=== PATIENT | male | born 1965 | race Two or more races ===

== ENCOUNTER 2024-12-27 12:52 | Inpatient (IN) | payer MEDICAID ==
[~2024-12-27] VITALS: Ht 152.4 cm; Wt 81.6 kg
[2024-12-27 13:20] VITALS: O2SAT 96
[2024-12-27 15:22] LABS: BASOPHILS % 0.4 % (0.0-2.0); EOSINOPHILS % 1.2 % (0.0-5.0); HEMATOCRIT. 45.1 % (42.0-52.0); HEMOGLOBIN. 15.1 g/dL (14.0-18.0); LYMPHOCYTES % 28.0 % (20.0-50.0); MEAN PLATELET VOLUME 8.3 fl (7.4-10.4); MONOCYTES % 9.7 % (2.0-8.0); NEUTROPHILS % 60.7 % (40.0-76.0); PLATELET 212 x1000/uL (130-400); RED BLOOD CELL COUNT 4.83 mill/uL (4.7-6.1); RED CELL DISTRIBUTION WIDTH 13.9 % (11.6-14.6)
[2024-12-27 15:33] LABS: CREATININE 0.9 mg/dL (0.6-1.3); UREA NITROGEN BLOOD 14 mg/dL (9-23)
[2024-12-27 15:34] LABS: ETHANOL BLOOD < 10 mg/dL (<10)
[2024-12-27 15:35] LABS: ASPARTATE AMINOTRANSFERASE 16 IU/L (<34); BILIRUBIN DIRECT 0.2 mg/dL (<=3.0); TROPONIN I HIGH SENSITIVITY 11 ng/L (3.0-53)
[2024-12-27 15:36] LABS: BILIRUBIN TOTAL 0.7 mg/dL (0.1-1.0); PROTEIN TOTAL 8.0 g/dL (6.0-8.3)
[2024-12-27 15:41] LABS: INR 1.1
[2024-12-27] MEDS: HYDROCODONE/ACETAMINOPHEN 5/325MG TABLET PO ONE (15:53)
[2024-12-27] MEDS: NICOTINE 21MG PATCH TD SCH (18:02)
[2024-12-27 18:08] LABS: TROPONIN I HIGH SENSITIVITY 11 ng/L (3.0-53)
[2024-12-27] MEDS ORDERED: MAGNESIUM/ALUMINUM HYDROXIDE/SIMETHICONE 30ML UDC PO PRN (18:30)
[2024-12-27] MEDS ORDERED: DIPHENHYDRAMINE 50MG/ML VIAL IV PRN (18:30)
[2024-12-27] MEDS ORDERED: GUAIFENESIN 200MG/10ML SUGAR FREE UDC PO PRN (18:30)
[2024-12-27] MEDS ORDERED: NITROGLYCERIN 0.4MG TABLET SL SL PRN (18:30)
[2024-12-27] MEDS ORDERED: ACETAMINOPHEN 325MG TABLET PO PRN ×2 (18:30)
[2024-12-27] MEDS ORDERED: IPRATROPIUM/ALBUTEROL 0.5-3(2.5)MG/3ML NEB HHN PRN (18:30)
[2024-12-27] MEDS ORDERED: DOCUSATE SODIUM 100MG CAPSULE PO PRN (18:30)
[2024-12-27] MEDS ORDERED: ONDANSETRON HCL 4MG/2ML INJ IV PRN (18:30)
[2024-12-27] MEDS: PANTOPRAZOLE SODIUM 40 MG/VIAL IV SCH (19:09)
[2024-12-27 20:00] VITALS: BP 132/96; PULSE 75; RESP 20; TEMP 35.9; O2SAT 96
[2024-12-27 21:00] VITALS: BP 132/96; PULSE 67; RESP 18; TEMP 35.9176
[2024-12-27] MEDS ORDERED: ENOXAPARIN 40MG/0.4ML SYR SUBCUT SCH (21:00)
[2024-12-27] MEDS: ASPIRIN 81MG TABLET PO SCH (21:42)
[2024-12-27] MEDS: ATORVASTATIN CALCIUM 40MG TABLET PO SCH (21:42)
[2024-12-28] VITALS: BP 129/86; PULSE 77; RESP 21; TEMP 36.8; O2SAT 98
[2024-12-28 04:00] VITALS: BP 125/89; PULSE 79; RESP 20; TEMP 36.7; O2SAT 97
[2024-12-28 08:00] VITALS: BP 144/86; PULSE 80; RESP 18; TEMP 36.7; O2SAT 98
[2024-12-28] MEDS ORDERED: HYDROCHLOROTHIAZIDE 12.5MG CAPSULE PO SCH (09:00)
[2024-12-28] MEDS ORDERED: ENOXAPARIN 40MG/0.4ML SYR SUBCUT SCH (10:00)
[2024-12-28] MEDS: ENOXAPARIN 40MG/0.4ML SYR SUBCUT NR (12:31)
[2024-12-28] MEDS: DICLOFENAC SODIUM 1% GEL 50GM TOP SCH (12:32)
[2024-12-28 16:28] LABS: BASOPHILS % 0.6 % (0.0-2.0); EOSINOPHILS % 1.5 % (0.0-5.0); HEMATOCRIT. 43.4 % (42.0-52.0); HEMOGLOBIN. 14.5 g/dL (14.0-18.0); LYMPHOCYTES % 38.8 % (20.0-50.0); MEAN PLATELET VOLUME 8.9 fl (7.4-10.4); MONOCYTES % 9.4 % (2.0-8.0); NEUTROPHILS % 49.7 % (40.0-76.0); PLATELET 191 x1000/uL (130-400); RED BLOOD CELL COUNT 4.69 mill/uL (4.7-6.1); RED CELL DISTRIBUTION WIDTH 14.2 % (11.6-14.6)
[2024-12-28 16:43] LABS: LDL CHOLESTEROL 65.0 mg/dL (5-100); TRIGLYCERIDE 67.0 mg/dL (0-150)
[2024-12-28 16:45] LABS: CREATINE KINASE MB FRACTION 2.8 ng/mL (0.5-3.6); TROPONIN I HIGH SENSITIVITY 12.0 ng/L (3.0-53)
[2024-12-28 16:48] LABS: T4 FREE 1.35 ng/dL (0.89-1.76)
[2024-12-28] MEDS ORDERED: METOPROLOL TARTRATE 5MG/5ML VIAL IV PRN (19:00)
[2024-12-28 20:00] VITALS: BP 138/72; PULSE 89; RESP 20; TEMP 37; O2SAT 98
[2024-12-28] MEDS: ENOXAPARIN 80MG/0.8ML SYR SUBCUT SCH (21:00)
[2024-12-29] VITALS: BP 124/89; PULSE 91; RESP 20; TEMP 37; O2SAT 98
[2024-12-29 04:00] VITALS: BP 132/86; RESP 18; TEMP 36.4; O2SAT 98
[2024-12-29 08:00] VITALS: BP 120/81; PULSE 71; RESP 16; TEMP 36.3; O2SAT 96
[2024-12-29 12:00] VITALS: BP 128/87; PULSE 77; RESP 14; TEMP 36.2; O2SAT 95
[2024-12-29 20:00] VITALS: BP 139/86; PULSE 77; RESP 18; TEMP 36.6; O2SAT 96
[2024-12-30] VITALS: BP 128/88; PULSE 79; RESP 19; TEMP 36.6; O2SAT 99
[2024-12-30 04:00] VITALS: BP 141/84; PULSE 73; RESP 18; TEMP 36.6; O2SAT 99
[2024-12-30 08:00] VITALS: BP 132/88; PULSE 73; RESP 18; TEMP 36.4; O2SAT 97
[2024-12-30 16:10] VITALS: BP 146/100; PULSE 72; RESP 20; TEMP 36.4; O2SAT 98
[2024-12-30] MEDS: CLONIDINE 0.1MG TABLET PO PRN (16:42)
[2024-12-30 20:00] VITALS: BP 140/91; PULSE 80; RESP 21; TEMP 36.8; O2SAT 97
[2024-12-31] VITALS: BP 119/81; PULSE 66; RESP 21; TEMP 36.4; O2SAT 96
[2024-12-31 08:00] VITALS: BP 128/87; PULSE 73; RESP 20; TEMP 36.6; O2SAT 99
[2024-12-31] MEDS: NITROGLYCERIN SPRAY/4.9GM CAN TL ONE (09:05)
[2024-12-31] MEDS ORDERED: IOHEXOL-350 100 ML BOTTLE ONE (10:01)
[2024-12-31 12:00] VITALS: BP 131/80; PULSE 75; RESP 20; TEMP 36.5; O2SAT 98
[2024-12-31 16:00] VITALS: BP 172/71; PULSE 73; RESP 20; TEMP 36.6; O2SAT 98
[2024-12-31] MEDS: NICOTINE 7MG PATCH TD SCH (17:40)
[2024-12-31 20:00] VITALS: BP 155/92; PULSE 73; RESP 22; TEMP 36.8; O2SAT 98
[2025-01-01] VITALS: BP 142/101; PULSE 70; RESP 20; TEMP 36.6; O2SAT 96
[2025-01-01 04:00] VITALS: BP 120/86; PULSE 68; RESP 20; TEMP 36; O2SAT 98
[2025-01-01 08:00] VITALS: BP 145/99; PULSE 66; RESP 18; TEMP 36.2; O2SAT 98
[2025-01-01 12:00] VITALS: BP 127/80; PULSE 70; RESP 14; TEMP 36.1; O2SAT 98
[2025-01-01 16:00] VITALS: BP 137/67; PULSE 68; RESP 15; TEMP 36.8; O2SAT 98
[2025-01-01 20:00] VITALS: BP 143/91; PULSE 72; RESP 18; TEMP 36.5; O2SAT 99
[2025-01-02] VITALS: BP 124/78; PULSE 68; RESP 18; TEMP 36.6; O2SAT 99
[2025-01-02 04:00] VITALS: BP 119/79; PULSE 73; RESP 18; TEMP 37.2; O2SAT 99
[2025-01-02 08:00] VITALS: BP 121/73; PULSE 67; RESP 20; TEMP 36.6; O2SAT 95
[2025-01-02 12:00] VITALS: BP 121/70; PULSE 70; RESP 20; TEMP 36.7; O2SAT 96
[2025-01-02 16:00] VITALS: BP 128/82; PULSE 65; RESP 20; TEMP 36.4; O2SAT 93
[2025-01-02 20:00] VITALS: BP 127/84; PULSE 72; RESP 18; TEMP 36.4; O2SAT 99
[2025-01-03] VITALS: BP 133/85; PULSE 66; RESP 18; TEMP 36.4; O2SAT 99
[2025-01-03 04:00] VITALS: BP 121/85; PULSE 72; RESP 18; TEMP 36.3; O2SAT 99
[2025-01-03 08:06] VITALS: BP 124/78; PULSE 64; RESP 18; TEMP 36.2; O2SAT 99
[2025-01-03 12:10] VITALS: BP 116/78; PULSE 72; RESP 18; TEMP 36.4; O2SAT 100
[2025-01-03 16:00] VITALS: BP 127/82; PULSE 62; RESP 18; TEMP 36.1; O2SAT 96
[2025-01-03 20:00] VITALS: BP 125/73; PULSE 70; RESP 20; TEMP 36.5; O2SAT 98
[2025-01-03] MEDS: ATORVASTATIN CALCIUM 20MG TABLET PO SCH (21:00)
[2025-01-04] VITALS: BP 138/83; PULSE 67; RESP 19; TEMP 36.4; O2SAT 95
[2025-01-04 04:00] VITALS: BP 115/73; PULSE 67; RESP 20; TEMP 36.6; O2SAT 97
[2025-01-04 08:00] VITALS: BP 127/79; PULSE 78; RESP 20; TEMP 36.7; O2SAT 93
[2025-01-04 12:00] VITALS: BP 115/86; PULSE 72; RESP 18; TEMP 36.6; O2SAT 95
[2025-01-04 16:00] VITALS: BP 116/85; PULSE 76; RESP 18; TEMP 36.4; O2SAT 94
[2025-01-04 20:00] VITALS: BP 127/85; PULSE 72; RESP 18; TEMP 36.5; O2SAT 96
[2025-01-05] VITALS: BP 123/88; PULSE 77; RESP 18; TEMP 36.3; O2SAT 98
[2025-01-05 04:00] VITALS: BP 141/88; PULSE 70; RESP 18; TEMP 36.1; O2SAT 96
[2025-01-05 08:00] VITALS: BP 113/79; PULSE 61; RESP 17; TEMP 36.6; O2SAT 97
[2025-01-05 12:00] VITALS: BP 118/87; PULSE 66; RESP 15; TEMP 36.6; O2SAT 96
[2025-01-05 16:00] VITALS: BP 134/90; PULSE 65; RESP 18; TEMP 36.2; O2SAT 95
[2025-01-05 20:00] VITALS: BP 124/79; PULSE 76; RESP 20; TEMP 36.8; O2SAT 95
[2025-01-06] VITALS: BP 120/90; PULSE 69; RESP 19; TEMP 36.4; O2SAT 94
[2025-01-06 04:00] VITALS: BP 108/79; PULSE 72; RESP 20; TEMP 36.4; O2SAT 95
[2025-01-06 08:00] VITALS: BP 115/82; PULSE 70; RESP 17; TEMP 36.4; O2SAT 100
[2025-01-06 12:00] VITALS: BP 122/78; PULSE 67; RESP 18; TEMP 36.4; O2SAT 97
[2025-01-06 16:00] VITALS: BP 118/73; PULSE 65; RESP 18; TEMP 36.5; O2SAT 100
[2025-01-06 20:00] VITALS: BP 124/82; PULSE 82; RESP 18; TEMP 36.2; O2SAT 100
[2025-01-07] VITALS (11 sets, daily range): BP systolic 110–144; BP diastolic 76–113; PULSE 64–87; RESP 13–22; TEMP 36.2–36.7; O2SAT 94–100
[2025-01-07] MEDS ORDERED: HEPARIN 1000 UNITS/ML 10ML ONE ×2 (13:47→15:03)
[2025-01-07] MEDS ORDERED: IODIXANOL 320MG/ML 100 ML BOTTLE IV ONE ×2 (13:47→14:50)
[2025-01-07] MEDS ORDERED: LIDOCAINE HCL 1% 20ML VIAL ONE (13:47)
[2025-01-07] MEDS ORDERED: FENTANYL CITRATE/PF 50MCG/ML 2ML VIAL ONE (14:08)
[2025-01-07] MEDS ORDERED: MIDAZOLAM HCL 2 MG/2 ML VIAL ONE (14:08)
[2025-01-07] MEDS ORDERED: EPINEPHRINE 0.1MG/ML (1:10,000) 10ML SYR ONE (14:18)
[2025-01-07] MEDS ORDERED: ATROPINE SULFATE 1MG/10ML SYR ONE (14:19)
[2025-01-07] MEDS ORDERED: VERAPAMIL HCL 2.5 MG/1 ML 2ML VIAL IV ONE (14:28)
[2025-01-07] MEDS ORDERED: ATROPINE SULFATE 1MG/10ML SYR IV PRN (15:45)
[2025-01-07] MEDS: SODIUM CHLORIDE 0.45% 1,000 ML IV ONE (17:37)
[2025-01-08] VITALS (7 sets, daily range): BP systolic 102–141; BP diastolic 79–96; PULSE 59–77; RESP 9–18; TEMP 36.4–37; O2SAT 96–100
[2025-01-08 08:58] LABS: BASOPHILS % 0.5 % (0.0-2.0); EOSINOPHILS % 1.5 % (0.0-5.0); HEMATOCRIT. 39.4 % (42.0-52.0); HEMOGLOBIN. 13.2 g/dL (14.0-18.0); LYMPHOCYTES % 23.9 % (20.0-50.0); MEAN PLATELET VOLUME 9.5 fl (7.4-10.4); MONOCYTES % 9.5 % (2.0-8.0); NEUTROPHILS % 64.6 % (40.0-76.0); PLATELET 172 x1000/uL (130-400); RED BLOOD CELL COUNT 4.35 mill/uL (4.7-6.1); RED CELL DISTRIBUTION WIDTH 13.8 % (11.6-14.6)
[2025-01-08 09:11] LABS: CREATININE 0.9 mg/dL (0.6-1.3); UREA NITROGEN BLOOD 11 mg/dL (9-23)
[2025-01-08] MEDS: METOPROLOL SUCCINATE 50MG ER TABLET PO SCH (14:10)
[2025-01-09] VITALS: BP 119/88; PULSE 63; RESP 14; TEMP 36.6; O2SAT 95
[2025-01-09 04:00] VITALS: BP 103/84; PULSE 65; RESP 14; TEMP 36.9; O2SAT 95
[2025-01-09 07:01] LABS: CREATININE 0.9 mg/dL (0.6-1.3); UREA NITROGEN BLOOD 10 mg/dL (9-23)
[2025-01-09 07:04] LABS: BASOPHILS % 0.6 % (0.0-2.0); EOSINOPHILS % 1.9 % (0.0-5.0); HEMATOCRIT. 39.7 % (42.0-52.0); HEMOGLOBIN. 13.4 g/dL (14.0-18.0); LYMPHOCYTES % 34.3 % (20.0-50.0); MEAN PLATELET VOLUME 9.4 fl (7.4-10.4); MONOCYTES % 9.3 % (2.0-8.0); NEUTROPHILS % 53.9 % (40.0-76.0); PLATELET 183 x1000/uL (130-400); RED BLOOD CELL COUNT 4.39 mill/uL (4.7-6.1); RED CELL DISTRIBUTION WIDTH 14.1 % (11.6-14.6)
[2025-01-09 08:00] VITALS: BP 114/86; PULSE 74; RESP 17; TEMP 36.8; O2SAT 95
[2025-01-09] MEDS: CLOPIDOGREL 75MG TABLET PO SCH (09:39)
[2025-01-09] MEDS: ASPIRIN 81MG TABLET PO SCH (09:39)
[2025-01-09] MEDS: ENOXAPARIN 40MG/0.4ML SYR SUBCUT SCH (09:40)
[2025-01-09 12:00] VITALS: BP 120/77; PULSE 69; RESP 17; TEMP 36.4; O2SAT 95
[2025-01-09 16:00] VITALS: BP 99/81; PULSE 73; RESP 16; TEMP 36.6; O2SAT 95
[2025-01-09 20:00] VITALS: BP 112/81; PULSE 71; RESP 13; TEMP 36.4; O2SAT 96
[2025-01-10] VITALS: BP 117/87; PULSE 66; RESP 15; TEMP 36.9; O2SAT 96
[2025-01-10 04:00] VITALS: BP 109/83; PULSE 67; RESP 16; TEMP 37.1
[2025-01-10 07:18] LABS: CREATININE 0.9 mg/dL (0.6-1.3); UREA NITROGEN BLOOD 10 mg/dL (9-23)
[2025-01-10 07:29] LABS: BASOPHILS % 0.5 % (0.0-2.0); EOSINOPHILS % 1.9 % (0.0-5.0); HEMATOCRIT. 38.2 % (42.0-52.0); HEMOGLOBIN. 12.9 g/dL (14.0-18.0); LYMPHOCYTES % 31.2 % (20.0-50.0); MEAN PLATELET VOLUME 9.1 fl (7.4-10.4); MONOCYTES % 11.3 % (2.0-8.0); NEUTROPHILS % 55.1 % (40.0-76.0); PLATELET 177 x1000/uL (130-400); RED BLOOD CELL COUNT 4.23 mill/uL (4.7-6.1); RED CELL DISTRIBUTION WIDTH 14.0 % (11.6-14.6)
[2025-01-10 07:48] LABS: INR 1.1
[2025-01-10 08:00] VITALS: BP 111/59; PULSE 64; RESP 19; TEMP 36.6; O2SAT 95
[2025-01-10] MEDS ORDERED: HEPARIN 1000 UNITS/ML 10ML ONE ×2 (09:46→11:46)
[2025-01-10] MEDS ORDERED: LIDOCAINE HCL 1% 20ML VIAL ONE (09:46)
[2025-01-10] MEDS ORDERED: VERAPAMIL HCL 2.5 MG/1 ML 2ML VIAL IV ONE (09:46)
[2025-01-10] MEDS ORDERED: IODIXANOL 320 MG/ML 150ML BOTTLE IV ONE (09:46)
[2025-01-10] MEDS ORDERED: FENTANYL CITRATE/PF 50MCG/ML 2ML VIAL ONE (10:46)
[2025-01-10] MEDS ORDERED: MIDAZOLAM HCL 2 MG/2 ML VIAL ONE ×2 (10:46→11:36)
[2025-01-10] MEDS ORDERED: IODIXANOL 320MG/ML 100 ML BOTTLE IV ONE (12:26)
[2025-01-10] MEDS ORDERED: ASPIRIN 81MG TABLET ONE (12:33)
[2025-01-10] MEDS ORDERED: CLOPIDOGREL 75MG TABLET ONE (12:34)
[2025-01-10 12:55] VITALS: BP 121/83; PULSE 66; RESP 12; TEMP 36.5; O2SAT 96
[2025-01-10] MEDS ORDERED: ATROPINE SULFATE 1MG/10ML SYR IV PRN (13:00)
[2025-01-10 16:00] VITALS: BP 134/95; PULSE 90; RESP 17; TEMP 36.7; O2SAT 97
[2025-01-10] MEDS: SODIUM CHLORIDE 0.45% 1,000 ML IV SCH (16:21)
[2025-01-10 20:00] VITALS: BP 128/107; PULSE 91; RESP 20; TEMP 36.4; O2SAT 95
[2025-01-11] VITALS: BP 148/103; PULSE 85; RESP 20; TEMP 36.4; O2SAT 96
[2025-01-11] MEDS: METOPROLOL TARTRATE 25MG TABLET PO NR (00:15)
[2025-01-11 04:00] VITALS: BP 111/74; PULSE 69; RESP 18; O2SAT 98
[2025-01-11 06:42] LABS: BASOPHILS % 0.3 % (0.0-2.0); EOSINOPHILS % 1.9 % (0.0-5.0); HEMATOCRIT. 37.7 % (42.0-52.0); HEMOGLOBIN. 12.8 g/dL (14.0-18.0); LYMPHOCYTES % 19.3 % (20.0-50.0); MEAN PLATELET VOLUME 8.9 fl (7.4-10.4); MONOCYTES % 12.0 % (2.0-8.0); NEUTROPHILS % 66.5 % (40.0-76.0); PLATELET 182 x1000/uL (130-400); RED BLOOD CELL COUNT 4.18 mill/uL (4.7-6.1); RED CELL DISTRIBUTION WIDTH 14.2 % (11.6-14.6)
[2025-01-11 07:05] LABS: CREATININE 0.8 mg/dL (0.6-1.3)
[2025-01-11 07:06] LABS: UREA NITROGEN BLOOD 9 mg/dL (9-23)
[2025-01-11 08:00] VITALS: BP 122/88; PULSE 66; RESP 13; TEMP 36.6; O2SAT 99
[2025-01-11] MEDS: METOPROLOL SUCCINATE 25MG ER TABLET PO SCH (08:37)
[2025-01-11 12:00] VITALS: BP 119/84; PULSE 86; RESP 21; TEMP 36.9; O2SAT 98
[2025-01-11] MEDS: NICOTINE 14MG PATCH TD SCH (13:46)
[2025-01-11 16:00] VITALS: BP 106/78; PULSE 81; RESP 19; TEMP 36.8; O2SAT 97
[2025-01-11 20:00] VITALS: BP 117/95; PULSE 75; RESP 18; TEMP 36.8; O2SAT 97
[2025-01-12] VITALS: BP 121/84; PULSE 74; RESP 15; TEMP 36.6; O2SAT 93
[2025-01-12 04:00] VITALS: BP 123/86; PULSE 69; RESP 14; TEMP 36.3; O2SAT 94
[2025-01-12 08:00] VITALS: BP 127/96; PULSE 75; RESP 14; TEMP 36.9; O2SAT 93
[2025-01-12 12:00] VITALS: BP 109/84; PULSE 87; RESP 22; TEMP 36.6; O2SAT 94
[2025-01-12 16:00] VITALS: BP 120/97; PULSE 69; RESP 18; TEMP 36.6; O2SAT 97
[2025-01-12 20:00] VITALS: BP 110/87; PULSE 74; RESP 12; TEMP 36.8; O2SAT 93
[2025-01-12] MEDS: ATORVASTATIN CALCIUM 40MG TABLET PO SCH (21:07)
[2025-01-13] VITALS: BP 123/94; PULSE 75; RESP 15; TEMP 36.7; O2SAT 97
[2025-01-13 04:00] VITALS: BP 112/95; PULSE 67; RESP 10; TEMP 36.6; O2SAT 97
[2025-01-13 08:00] VITALS: BP 120/93; PULSE 80; RESP 14; TEMP 36.6; O2SAT 95
[2025-01-13 12:00] VITALS: BP 106/84; PULSE 84; RESP 15; TEMP 36.6; O2SAT 94
[2025-01-13 16:00] VITALS: BP 120/95; PULSE 72; RESP 12; TEMP 36.8; O2SAT 99
[2025-01-13 20:00] VITALS: BP 124/99; PULSE 84; RESP 18; TEMP 36.7; O2SAT 95
[2025-01-14] VITALS: BP 138/103; PULSE 87; RESP 20; TEMP 36.8; O2SAT 99
[2025-01-14 01:51] VITALS: BP 122/98; PULSE 79; RESP 16; O2SAT 97
[2025-01-14 04:00] VITALS: BP 142/93; PULSE 79; RESP 20; TEMP 36.7; O2SAT 98
[2025-01-14 05:15] VITALS: BP 132/93; PULSE 73; RESP 19; TEMP 36.5; O2SAT 100
[2025-01-14 16:00] VITALS: BP 124/84; PULSE 84; RESP 20; TEMP 36.4; O2SAT 99
[2025-01-14 20:00] VITALS: BP 119/54; PULSE 88; RESP 19; TEMP 36.6; O2SAT 96
[2025-01-15] VITALS: BP 121/86; PULSE 92; RESP 19; TEMP 36.7; O2SAT 96
[2025-01-15 04:00] VITALS: BP 117/85; PULSE 80; RESP 17; TEMP 36.6; O2SAT 96
[2025-01-15 08:00] VITALS: BP 118/76; PULSE 84; RESP 17; TEMP 36.2; O2SAT 96
[2025-01-15 12:00] VITALS: BP 103/79; PULSE 92; RESP 18; TEMP 36.4; O2SAT 97
[2025-01-15 16:00] VITALS: BP 124/83; PULSE 87; RESP 18; TEMP 36.5; O2SAT 99
[2025-01-15 20:00] VITALS: BP 106/75; PULSE 78; RESP 18; TEMP 36.6; O2SAT 95
[2025-01-16] VITALS: BP 119/75; PULSE 74; RESP 18; TEMP 37.1; O2SAT 95
[2025-01-16 04:00] VITALS: BP 100/71; PULSE 72; RESP 19; TEMP 36.6; O2SAT 96
[2025-01-16 08:00] VITALS: BP 101/69; PULSE 65; RESP 16; TEMP 36.6; O2SAT 99
[2025-01-16 12:00] VITALS: BP 122/80; PULSE 78; RESP 16; TEMP 36.7; O2SAT 96
[2025-01-16 16:00] VITALS: BP 149/94; PULSE 79; RESP 18; TEMP 36.6; O2SAT 100
[2025-01-17] VITALS: BP 126/86; PULSE 85; RESP 18; TEMP 36.4; O2SAT 100
[2025-01-17 08:00] VITALS: BP 118/76; PULSE 77; RESP 20; TEMP 36.3; O2SAT 95
[2025-01-17 12:00] VITALS: BP_SYST 105; BP_SYST 133; BP_DIAS 73; BP_DIAS 87; PULSE 80; PULSE 92; RESP 16; RESP 18; TEMP 36.1; TEMP 36.6; O2SAT 96; O2SAT 98
[2025-01-17 16:00] VITALS: BP 114/68; PULSE 75; RESP 18; TEMP 36.4; O2SAT 99
[2025-01-17 20:00] VITALS: BP 102/74; PULSE 72; RESP 18; TEMP 36.3; O2SAT 95
[2025-01-18] VITALS: BP 118/78; PULSE 66; RESP 20; TEMP 36.5; O2SAT 95
[2025-01-18 04:00] VITALS: BP 124/72; PULSE 64; RESP 20; TEMP 36.8; O2SAT 96
[2025-01-18 08:00] VITALS: BP 121/78; PULSE 60; RESP 17; TEMP 36.7; O2SAT 97
[2025-01-18 16:00] VITALS: BP 110/68; PULSE 78; RESP 18; TEMP 37.2; O2SAT 97
[2025-01-18 20:00] VITALS: BP 116/71; PULSE 71; RESP 18; TEMP 36.6; O2SAT 100
[2025-01-19] VITALS: BP 116/74; PULSE 71; RESP 18; TEMP 36.6; O2SAT 97
[2025-01-19 04:00] VITALS: BP 108/72; PULSE 67; RESP 18; TEMP 36.2; O2SAT 100
[2025-01-19 08:00] VITALS: BP 123/78; PULSE 65; RESP 17; TEMP 36.8; O2SAT 97
[2025-01-19 12:00] VITALS: BP 106/67; PULSE 70; RESP 18; TEMP 37.3; O2SAT 98
[2025-01-19 16:00] VITALS: BP 99/66; PULSE 68; RESP 18; TEMP 36.8; O2SAT 98
[2025-01-19 20:00] VITALS: BP 113/77; PULSE 68; RESP 18; TEMP 36.7; O2SAT 95
[2025-01-20] VITALS: BP 112/81; PULSE 62; RESP 18; TEMP 36.5; O2SAT 100
[2025-01-20 04:00] VITALS: BP 113/77; PULSE 66; RESP 18; TEMP 36.4; O2SAT 100
[2025-01-20 08:00] VITALS: BP 108/73; PULSE 58; RESP 16; TEMP 36.1; O2SAT 96
[2025-01-20 12:00] VITALS: BP 96/54; PULSE 66; RESP 18; TEMP 36.1; O2SAT 100
[2025-01-20 20:00] VITALS: BP 114/80; PULSE 86; RESP 17; TEMP 36.6; O2SAT 96
[2025-01-21] VITALS: BP 120/85; PULSE 74; RESP 18; TEMP 36.6; O2SAT 96
[2025-01-21 04:00] VITALS: BP 109/81; PULSE 72; RESP 19; TEMP 36.6; O2SAT 97
[2025-01-21 08:00] VITALS: BP 128/77; PULSE 78; RESP 19; TEMP 36.4; O2SAT 95
[2025-01-21 12:00] VITALS: BP 99/63; PULSE 63; RESP 19; TEMP 36.1; O2SAT 95
[2025-01-21 16:00] VITALS: BP 109/61; PULSE 86; RESP 18; TEMP 36.4; O2SAT 96
[2025-01-21 20:00] VITALS: BP 103/62; PULSE 75; RESP 18; TEMP 36.8; O2SAT 96
[2025-01-22] VITALS: BP 103/72; PULSE 73; RESP 18; TEMP 36.7; O2SAT 95
[2025-01-22 04:00] VITALS: BP 113/76; PULSE 71; RESP 18; TEMP 37.1; O2SAT 95
[2025-01-22 08:00] VITALS: BP 99/71; PULSE 69; RESP 20; TEMP 36.7; O2SAT 95
[2025-01-22 12:00] VITALS: BP 92/65; PULSE 81; RESP 20; TEMP 36.2; O2SAT 95
[2025-01-22 16:00] VITALS: BP 121/83; PULSE 82; RESP 20; TEMP 36.7; O2SAT 99
[2025-01-22 20:00] VITALS: BP 113/79; PULSE 97; RESP 17; TEMP 36.8; O2SAT 94
[2025-01-23] VITALS: BP 119/74; PULSE 83; RESP 17; TEMP 36.6; O2SAT 95
[2025-01-23 04:00] VITALS: BP 117/72; PULSE 78; RESP 19; TEMP 36.7; O2SAT 96
[2025-01-23 08:00] VITALS: BP 116/75; PULSE 92; RESP 17; TEMP 37; O2SAT 96
[2025-01-23 12:00] VITALS: BP 105/6; PULSE 75; RESP 17; TEMP 37; O2SAT 96
[2025-01-23 16:00] VITALS: BP 111/76; PULSE 64; RESP 18; TEMP 36.6; O2SAT 95
[2025-01-23 20:00] VITALS: BP 111/72; PULSE 69; RESP 18; TEMP 36.4; O2SAT 95
[2025-01-24] VITALS: BP 121/82; PULSE 59; RESP 18; TEMP 36.6; O2SAT 95
[2025-01-24 04:00] VITALS: BP 122/81; PULSE 63; RESP 18; TEMP 36.5; O2SAT 95
[2025-01-24 08:00] VITALS: BP 126/84; PULSE 62; RESP 19; TEMP 36.4; O2SAT 96
[2025-01-24 12:00] VITALS: BP 122/69; PULSE 76; RESP 19; TEMP 36.4; O2SAT 96
[2025-01-24 16:00] VITALS: BP 109/74; PULSE 76; RESP 18; TEMP 36.5; O2SAT 96
[2025-01-24 20:00] VITALS: BP 115/82; PULSE 74; RESP 18; TEMP 37; O2SAT 94
[2025-01-25] VITALS: BP 119/84; PULSE 63; RESP 18; TEMP 36.6; O2SAT 100
[2025-01-25 04:00] VITALS: BP 111/82; PULSE 73; RESP 20; TEMP 37; O2SAT 98
[2025-01-25 08:00] VITALS: BP 119/66; PULSE 61; RESP 18; TEMP 36.1; O2SAT 97
[2025-01-25 12:00] VITALS: BP 102/59; PULSE 66; RESP 19; TEMP 36.1; O2SAT 97
[2025-01-25] MEDS: ENOXAPARIN 40MG/0.4ML SYR SUBCUT SCH (14:00)
[2025-01-25 16:00] VITALS: BP 119/73; PULSE 69; RESP 18; TEMP 36.2; O2SAT 97
[2025-01-25 20:00] VITALS: BP 123/75; PULSE 70; RESP 18; TEMP 36.4; O2SAT 96
[2025-01-26 04:00] VITALS: BP 117/75; PULSE 71; RESP 18; TEMP 36.4; O2SAT 95
[2025-01-26 08:00] VITALS: BP 113/76; PULSE 64; RESP 19; TEMP 36.5; O2SAT 97
[2025-01-26 12:00] VITALS: BP 108/73; PULSE 73; RESP 18; TEMP 36.4; O2SAT 97
[2025-01-26 16:00] VITALS: BP 115/73; PULSE 66; RESP 19; TEMP 36.4; O2SAT 98
[2025-01-26 20:00] VITALS: BP 117/60; PULSE 70; RESP 18; TEMP 36.4; O2SAT 95
[2025-01-27 04:00] VITALS: BP 115/72; PULSE 64; RESP 18; TEMP 36.3; O2SAT 95
[2025-01-27 08:00] VITALS: BP 111/76; PULSE 69; RESP 19; TEMP 36.5; O2SAT 99
[2025-01-27 12:00] VITALS: BP 115/69; PULSE 74; RESP 14; TEMP 36.4; O2SAT 100
[2025-01-27 16:00] VITALS: BP 111/70; PULSE 64; RESP 18; TEMP 36.6; O2SAT 96
[2025-01-27 20:00] VITALS: BP 111/66; PULSE 75; RESP 18; TEMP 36.4; O2SAT 94
[2025-01-28] VITALS: BP 128/84; PULSE 77; RESP 18; TEMP 36.3; O2SAT 95
[2025-01-28 04:00] VITALS: BP 121/59; PULSE 65; RESP 18; TEMP 36.3; O2SAT 95
[2025-01-28 08:00] VITALS: BP 115/83; PULSE 60; RESP 18; TEMP 36.6; O2SAT 96
[2025-01-28 12:00] VITALS: BP 103/69; PULSE 80; RESP 17; TEMP 36.5; O2SAT 97
[2025-01-28 20:00] VITALS: BP 108/72; PULSE 74; RESP 17; TEMP 36.5; O2SAT 99
[2025-01-29] VITALS: BP 107/68; PULSE 76; RESP 17; TEMP 36.5; O2SAT 99
[2025-01-29 04:00] VITALS: BP 111/65; PULSE 70; RESP 17; TEMP 36.6; O2SAT 98
[2025-01-29 08:00] VITALS: BP 131/83; PULSE 61; RESP 16; TEMP 36.6; O2SAT 98
[2025-01-29 12:00] VITALS: BP_SYST 118; BP_SYST 120; BP_DIAS 70; BP_DIAS 75; PULSE 69; PULSE 81; RESP 16; RESP 18; TEMP 36.5; O2SAT 96
[2025-01-29 16:00] VITALS: BP 110/70; PULSE 71; RESP 16; TEMP 36.5; O2SAT 97
[2025-01-30] VITALS: BP 124/74; PULSE 73; RESP 20; TEMP 36.7; O2SAT 96
[2025-01-30 04:00] VITALS: BP 121/77; PULSE 68; RESP 20; TEMP 36.4; O2SAT 98
[2025-01-30 08:00] VITALS: BP 125/77; PULSE 65; RESP 18; TEMP 36.4; O2SAT 95
[2025-01-30 16:00] VITALS: BP 107/65; PULSE 62; RESP 17; TEMP 36.2; O2SAT 95
[2025-01-30 20:00] VITALS: BP 106/73; PULSE 69; RESP 18; TEMP 36.8; O2SAT 99
[2025-01-31] VITALS: BP 111/69; PULSE 68; RESP 19; TEMP 36.6; O2SAT 98
[2025-01-31 04:00] VITALS: BP 110/70; PULSE 70; RESP 18; TEMP 36.5; O2SAT 97
[2025-01-31 08:00] VITALS: BP 107/74; PULSE 70; RESP 17; TEMP 36.7; O2SAT 97
[2025-01-31 12:00] VITALS: BP 102/74; PULSE 87; RESP 18; TEMP 36.6; O2SAT 99
[2025-01-31 16:00] VITALS: BP 110/68; PULSE 78; RESP 20; TEMP 36.8; O2SAT 99
[2025-01-31 20:00] VITALS: BP 109/75; PULSE 72; RESP 17; TEMP 36.6; O2SAT 98
[2025-02-01] VITALS: BP 110/75; PULSE 75; RESP 18; TEMP 36.6; O2SAT 97
[2025-02-01 04:00] VITALS: BP 125/83; PULSE 77; RESP 17; TEMP 36.7; O2SAT 98
[2025-02-01 08:00] VITALS: BP 119/91; PULSE 70; RESP 17; TEMP 36.2; O2SAT 97
[2025-02-01 12:00] VITALS: PULSE 73; RESP 18; TEMP 36.4; O2SAT 98
[2025-02-01 16:00] VITALS: BP 124/84; PULSE 76; RESP 18; TEMP 36.4; O2SAT 98
[2025-02-01 20:00] VITALS: BP 121/77; PULSE 61; RESP 18; TEMP 36.6; O2SAT 95
[2025-02-02] VITALS: BP 116/74; PULSE 61; RESP 18; TEMP 36.4; O2SAT 98
[2025-02-02 04:00] VITALS: BP 115/82; PULSE 62; RESP 18; TEMP 36.3; O2SAT 98
[2025-02-02 08:00] VITALS: BP 133/87; PULSE 82; RESP 17; TEMP 36.4; O2SAT 100
[2025-02-02 12:00] VITALS: BP 123/69; PULSE 63; RESP 18; TEMP 36.3; O2SAT 97
[2025-02-02 16:00] VITALS: BP 115/73; PULSE 64; RESP 18; TEMP 36.3; O2SAT 97
[2025-02-02 20:00] VITALS: BP 126/90; PULSE 64; RESP 19; TEMP 36.4; O2SAT 97
[2025-02-03] VITALS: BP 120/71; PULSE 58; RESP 19; TEMP 36.4; O2SAT 99
[2025-02-03 04:00] VITALS: BP 126/84; PULSE 71; RESP 19; TEMP 36.3; O2SAT 98
[2025-02-03 08:00] VITALS: BP 117/81; PULSE 72; RESP 18; TEMP 36.5; O2SAT 98
[2025-02-03 12:00] VITALS: BP 110/80; PULSE 79; RESP 18; TEMP 36.4; O2SAT 98
[2025-02-03 16:00] VITALS: BP 111/84; PULSE 77; RESP 18; TEMP 36.4; O2SAT 96
[2025-02-03 20:00] VITALS: BP 114/75; PULSE 77; RESP 18; TEMP 36.4; O2SAT 97
[2025-02-04 04:00] VITALS: BP 126/80; PULSE 72; RESP 16; TEMP 36.7; O2SAT 100
[2025-02-04 08:00] VITALS: BP 118/83; PULSE 69; RESP 20; TEMP 35.6; O2SAT 99
[2025-02-04 12:00] VITALS: BP 124/81; PULSE 83; RESP 20; TEMP 36.4; O2SAT 98
[2025-02-04 16:00] VITALS: BP 114/63; PULSE 74; RESP 19; TEMP 36.6; O2SAT 97
[2025-02-04 20:00] VITALS: BP 118/77; PULSE 77; RESP 18; TEMP 36.1; O2SAT 98
[2025-02-05] VITALS: BP 109/69; PULSE 63; RESP 16; TEMP 36.6; O2SAT 95
[2025-02-05 04:00] VITALS: BP 113/82; PULSE 68; RESP 17; TEMP 36.7; O2SAT 99
[2025-02-05 08:00] VITALS: BP 118/78; PULSE 64; RESP 18; TEMP 36.7; O2SAT 97
[2025-02-05 12:00] VITALS: BP 106/73; PULSE 69; RESP 19; TEMP 36.6; O2SAT 97
[2025-02-05 16:00] VITALS: BP 120/76; PULSE 67; RESP 18; TEMP 36.5; O2SAT 97
[2025-02-06] VITALS: BP 115/78; PULSE 82; RESP 18; TEMP 36.5; O2SAT 96
[2025-02-06 04:00] VITALS: BP 126/77; PULSE 63; RESP 18; TEMP 36.6; O2SAT 100
[2025-02-06 08:00] VITALS: BP 134/83; PULSE 74; RESP 18; TEMP 36.5; O2SAT 98
[2025-02-06 12:00] VITALS: BP 126/69; PULSE 75; RESP 17; TEMP 36.7; O2SAT 98
[2025-02-06 16:00] VITALS: BP 136/88; PULSE 75; RESP 16; TEMP 36.5; O2SAT 96
[2025-02-06 20:00] VITALS: BP 113/75; PULSE 75; RESP 19; TEMP 36.9; O2SAT 96
[2025-02-07] VITALS (7 sets, daily range): BP systolic 111–127; BP diastolic 72–81; PULSE 65–79; RESP 17–19; TEMP 35.7–37.1; O2SAT 97–100
[2025-02-07] MEDS: CLOPIDOGREL 75MG TABLET PO SCH (13:15)
[2025-02-07] MEDS ORDERED: APIXABAN 5 MG TABLET PO SCH (21:00)
[2025-02-08 04:00] VITALS: BP 119/77; PULSE 68; RESP 19; TEMP 36.9; O2SAT 98
[2025-02-08 08:36] VITALS: PULSE 73
[2025-02-08] MEDS: ENOXAPARIN 40MG/0.4ML SYR SUBCUT SCH (08:36)
[2025-02-08] MEDS: ASPIRIN 81MG EC TABLET PO SCH (08:54)
== END 2025-02-08 10:28 | DRG 175 ==
LOC: ER 12:52 → 8WST 17:00 → EDBEDREQTM 17:02 → EDBEDREQ 17:02 → 3WST 01-07 17:03 → 6EST 01-14 04:55
PROVIDERS: ADMIT Internal Medicine; ATTEND Internal Medicine
PROC: 4A023N7 Measurement of Cardiac Sampling and Pressure, Left Heart, Percutaneous Approach (ICD-10-PCS; 2025-01-07)
PROC: B211YZZ Fluoroscopy of Multiple Coronary Arteries using Other Contrast (ICD-10-PCS; 2025-01-07)
PROC: 4A033BC Measurement of Arterial Pressure, Coronary, Percutaneous Approach (ICD-10-PCS; 2025-01-07)
PROC: B215YZZ Fluoroscopy of Left Heart using Other Contrast (ICD-10-PCS; 2025-01-07)
PROC: 02703ZZ Dilation of Coronary Artery, One Artery, Percutaneous Approach (ICD-10-PCS; principal; 2025-01-10)
PROC: 027034Z Dilation of Coronary Artery, One Artery with Drug-eluting Intraluminal Device, Percutaneous Approach (ICD-10-PCS; 2025-01-10)
PROC: 4A023N7 Measurement of Cardiac Sampling and Pressure, Left Heart, Percutaneous Approach (ICD-10-PCS; 2025-01-10)
PROC: B211YZZ Fluoroscopy of Multiple Coronary Arteries using Other Contrast (ICD-10-PCS; 2025-01-10)
DX: I25.110 Atherosclerotic heart disease of native coronary artery with unstable angina pectoris (principal); L89.154 Pressure ulcer of sacral region, stage 4; L89.214 Pressure ulcer of right hip, stage 4; L89.224 Pressure ulcer of left hip, stage 4; I24.9 Acute ischemic heart disease, unspecified; L89.894 Pressure ulcer of other site, stage 4; I70.229 Atherosclerosis of native arteries of extremities with rest pain, unspecified extremity; L89.624 Pressure ulcer of left heel, stage 4; M25.472 Effusion, left ankle; L89.524 Pressure ulcer of left ankle, stage 4; L89.514 Pressure ulcer of right ankle, stage 4; L89.614 Pressure ulcer of right heel, stage 4; F10.10 Alcohol abuse, uncomplicated; E78.5 Hyperlipidemia, unspecified; I11.9 Hypertensive heart disease without heart failure; I48.91 Unspecified atrial fibrillation; R60.0 Localized edema; I49.3 Ventricular premature depolarization; J98.11 Atelectasis; F17.200 Nicotine dependence, unspecified, uncomplicated; I25.82 Chronic total occlusion of coronary artery; I69.354 Hemiplegia and hemiparesis following cerebral infarction affecting left non-dominant side; Z86.718 Personal history of other venous thrombosis and embolism; Z74.01 Bed confinement status; Z79.01 Long term (current) use of anticoagulants; Z99.3 Dependence on wheelchair; Y90.0 Blood alcohol level of less than 20 mg/100 ml
CPT/HCPCS: 36415; 71045; 73620; 75571; 80048; 80061; 80076; 80320; 82550; 82553; 82962; 83036; 83880; 84439; 84443; 84484; 84550; 85025; 85347; 85379; 92928; 93005; 93306; 93454; 93458; 93571; 93971; 97162; 97164; 97166; 99285; A4606; C1725; C1769; C1874; C1887; C1893; J0461; J1200; J1644; J1650; J2003; J2250; J2470; J3010; J3490; Q9967; G0480